=== PATIENT | female | born 1950 | race Caucasian/White ===

== ENCOUNTER 2020-08-26 13:21 | Emergency (ER) | payer MEDICARE, OTHER ==
[~2020-08-26] VITALS: Ht 170.2 cm; Wt 57.2 kg
[~2020-08-26 13:21] MED LIST: ARIP5TAB15; ASPI81CH45; BENZ0.5T6; CHOL1CAP; DIAZ2TAB2; FLUT44AE; HAL5T; IPRIH; OMEP20TA44; RISE35TA; RISP0.2512; VENL150C2; [UNRECOGNIZED DRUG - OTHER]
[2020-08-26] MEDS ORDERED: SODIUM CHLORIDE 0.9% 1,000 ML IVB ONE (13:45)
[2020-08-26 14:05] VITALS: BP 132/61
[2020-08-26 14:27] LABS: Basophils # (auto) 0.1 10 ^3/uL (0-0.2); Basophils % (auto) 1.1 % (0.0-2.0); Eosinophils # (auto) 0.1 10 ^3/uL (0-0.8); Eosinophils % (auto) 1.4 % (0.0-7.0); Hematocrit 34.6 % (36.0-46.0); Hemoglobin 11.8 g/dL (12.2-16.2); Lymphocytes # (auto) 1.8 10 ^3/uL (0.4-5.4); Lymphocytes % (auto) 21.2 % (10.0-50.0); Mean Corpuscular Hemoglobin 29.9 pg (28.0-32.0); Mean Corpuscular Hgb Conc. 34.2 g/dL (32.0-36.0); Mean Corpuscular Volume 87.4 fL (80.0-100.0); Monocytes # (auto) 0.5 10 ^3/uL (0-1.3); Monocytes % (auto) 6.1 % (0.0-12.0); Neutrophils # (auto) 5.9 10 ^3/uL (1.6-8.6); Neutrophils % (auto) 70.2 % (37.0-80.0); Platelet Count (auto) 228 10^3/uL (140-450); Red Blood Cells 3.96 10^6/uL (4.0-5.20); Red Cell Distribution Width 13.5 % (11.8-14.3); White Blood Cell 8.4 10^3/uL (4.4-10.8)
[2020-08-26 14:43] LABS: Albumin 3.4 g/dL (3.4-5.0); Anion Gap 7 (5-15); Blood Urea Nitrogen 24 mg/dL (7-18); Calcium 8.8 mg/dL (8.5-10.1); Carbon Dioxide 27 mmol/L (21-32); Chloride 105 mmol/L (98-107); Glucose 120 mg/dL (74-106); INR 0.96 (0.9-1.15); Magnesium 2.2 mg/dL (1.6-2.6); Partial Thromboplastin Time 23.9 sec (23.0-31.2); Potassium 3.9 mmol/L (3.5-5.1); Sodium 139 mmol/L (136-145)
[2020-08-26 14:50] LABS: Alanine Aminotransferase 13 U/L (13-56); Alkaline Phosphatase 110 U/L (45-117); Aspartate Aminotransferase 15 U/L (15-37); BUN/Creatinine Ratio 24.7; Bilirubin, Total 0.2 mg/dL (0.2-1.0); Blood Alcohol < 3.0 mg/dL (0-5); GFR African American 73 mL/min; GFR Non-African American 61 mL/min; Total Protein 6.4 g/dL (6.4-8.2)
== END 2020-08-26 15:58 | disposition left against medical advice (07) ==
LOC: EDBD 13:21 → ER 13:21
DX: R42 Dizziness and giddiness (principal); R55 Syncope and collapse; D64.9 Anemia, unspecified; I63.9 Cerebral infarction, unspecified; F41.9 Anxiety disorder, unspecified; G47.00 Insomnia, unspecified; F32.9 Major depressive disorder, single episode, unspecified; Z90.49 Acquired absence of other specified parts of digestive tract
CPT/HCPCS: 36415; 70450; 80053; 80320; 83735; 84484; 85025; 85610; 85730; 93005; 96360

== ENCOUNTER 2021-08-24 08:36 | Emergency (ER) | payer MEDICARE, OTHER ==
[~2021-08-24] VITALS: Ht 170.2 cm; Wt 56.2 kg
[~2021-08-24 08:36] MED LIST changes: -VENL150C2; +VENL150C3
[2021-08-24] MEDS ORDERED: traMADol HCL 50 MG TAB PO ONE (08:45)
[2021-08-24] MEDS ORDERED: TRAM-297 PO (12:02)
[2021-08-24 13:30] VITALS: BP 127/75
== END 2021-08-24 12:52 | disposition home or self-care (01) ==
LOC: ER 08:36
DX: S16.1XXA Strain of muscle, fascia and tendon at neck level, initial encounter (principal); S46.911A Strain of unspecified muscle, fascia and tendon at shoulder and upper arm level, right arm, initial encounter; W18.39XA Other fall on same level, initial encounter; Y93.89 Activity, other specified; Y92.89 Other specified places as the place of occurrence of the external cause; Y99.8 Other external cause status
CPT/HCPCS: 70450; 72125; 73030; 93005

== ENCOUNTER 2021-09-12 00:21 | Emergency (ER) | payer MEDICARE, OTHER ==
[~2021-09-12] VITALS: Ht 170.2 cm; Wt 31.8 kg
[~2021-09-12 00:21] MED LIST changes: +TRAM-297 PO
[2021-09-12 00:46] VITALS: BP 160/84
[2021-09-12] MEDS ORDERED: IBU600T PO (02:40)
== END 2021-09-12 02:44 | disposition left against medical advice (07) ==
LOC: EDBD 00:21 → ER 00:21
DX: S46.911A Strain of unspecified muscle, fascia and tendon at shoulder and upper arm level, right arm, initial encounter (principal); S80.02XA Contusion of left knee, initial encounter; M17.12 Unilateral primary osteoarthritis, left knee; Z90.49 Acquired absence of other specified parts of digestive tract; Z79.82 Long term (current) use of aspirin; Z79.899 Other long term (current) drug therapy; Z88.8 Allergy status to other drugs, medicaments and biological substances; W01.0XXA Fall on same level from slipping, tripping and stumbling without subsequent striking against object, initial encounter; Y93.89 Activity, other specified; Y92.89 Other specified places as the place of occurrence of the external cause; Y99.8 Other external cause status
CPT/HCPCS: 73030; 73562

== ENCOUNTER 2022-07-15 09:01 | Emergency (ER) | payer MEDICARE, OTHER ==
[~2022-07-15] VITALS: Ht 170.2 cm; Wt 60.4 kg
[~2022-07-15 09:01] MED LIST changes: +IBU600T PO
[2022-07-15 10:34] VITALS: BP 185/86
[2022-07-15] MEDS ORDERED: ACET1CAP14 PO (11:48)
[2022-07-15] MEDS ORDERED: ACETAMINOPHEN 500 MG TAB PO ONE (12:00)
== END 2022-07-15 12:03 | disposition home or self-care (01) ==
LOC: ER 09:01
DX: S93.602A Unspecified sprain of left foot, initial encounter (principal); Z90.49 Acquired absence of other specified parts of digestive tract; Z79.1 Long term (current) use of non-steroidal anti-inflammatories (NSAID); Z79.82 Long term (current) use of aspirin; Z79.899 Other long term (current) drug therapy; Z88.8 Allergy status to other drugs, medicaments and biological substances; W01.0XXA Fall on same level from slipping, tripping and stumbling without subsequent striking against object, initial encounter; Y93.89 Activity, other specified; Y92.89 Other specified places as the place of occurrence of the external cause; Y99.8 Other external cause status
CPT/HCPCS: 73630

== ENCOUNTER 2024-04-01 17:28 | Emergency (ER) | payer OTHER ==
[~2024-04-01] VITALS: Ht 172.7 cm; Wt 61.0 kg
[~2024-04-01 17:28] MED LIST changes: +ACET1CAP14 PO; +ARIP5TAB11; -ARIP5TAB15
[2024-04-01 18:05] VITALS: BP 141/84; PULSE 81; RESP 18; O2SAT 98
== END 2024-04-01 18:05 | disposition left against medical advice (07) ==
LOC: ER 17:28
DX: M25.511 Pain in right shoulder (principal); Z53.21 Procedure and treatment not carried out due to patient leaving prior to being seen by health care provider

== ENCOUNTER 2024-07-29 12:16 | Emergency (ER) | payer MEDICARE, OTHER ==
[~2024-07-29] VITALS: Ht 170.2 cm; Wt 64.9 kg
[2024-07-29 13:45] VITALS: BP 161/102; PULSE 18; RESP 18; TEMP 98.9; O2SAT 98
--- NOTE | 2024-07-29 13:50 | DVH ---
EXAM: XY R SHOULDER 2+ VIEW XRAY CLINICAL INDICATION: PAIN, NO INJURY TECHNIQUE: XY R SHOULDER 2+ VIEW XRAY Comparison: R SHOULDER COMPLETE XRAY on DOS: 09/12/21, R SHOULDER COMPLETE XRAY on DOS: 08/24/21 FINDINGS/IMPRESSION: There is no evidence of acute fracture or dislocation. Right total shoulder arthroplasty
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
== END 2024-07-29 14:34 | disposition home or self-care (01) ==
LOC: ER 12:19
DX: M24.9 Joint derangement, unspecified (principal); F41.9 Anxiety disorder, unspecified; F32.A Depression, unspecified; Z90.49 Acquired absence of other specified parts of digestive tract; Z79.51 Long term (current) use of inhaled steroids; Z79.899 Other long term (current) drug therapy; Z96.611 Presence of right artificial shoulder joint; Z88.8 Allergy status to other drugs, medicaments and biological substances
CPT/HCPCS: 29105; 73030